=== PATIENT | female | born 1970 | race American Indian/Alaskan Native ===

== ENCOUNTER 2016-12-10 10:46 | Emergency (ER) | payer MEDICAID ==
[2016-12-10 10:47] VITALS: BMI 36.1
[2016-12-10 11:05] VITALS: RESP 18; TEMP 98.1; O2SAT 100
[2016-12-10] MEDS ORDERED: Sodium Chloride 0.9% 1,000 ML IV STA (11:34)
--- NOTE | 2016-12-10 12:06 | ED PDOC ---
Arrival/HPI - General Chief Complaint: Dizziness/Lightheaded Time Seen by Provider: 12/10/16 11:11 Historian: Patient - History of Present Illness Narrative History of Present Illness (Text): 12/10/16 12:04 46 year old female with a past medical history that includes hypertension presents to the emergency department with dizziness since yesterday. Denies headache or visual changes. Patient denies any fever/chills, cough, shortness of breath, nausea, vomiting, abdominal pain, urinary/bowel changes, back pain, or other associated symptoms. She describes the dizziness as if things are moving and making her feel unsteady with walking. No focal weakness. Time/Duration: 24 hours Symptom Onset: Sudden Symptom Course: Unchanged Modifying Factors (Text): None Associated Symptoms (Text): None Past Medical History - Provider Review Nursing Documentation Reviewed: Yes - Infectious Disease Hx of Infectious Diseases: None - Tetanus Immunization Tetanus Immunization: Unknown - Cardiac Hx Hypertension: Yes Hx Pacemaker: No - Pulmonary Hx Respiratory Disorders: Yes (smoker) - Neurological Hx Paralysis: No - Hematological/Oncological Hx Blood Transfusions: No Hx Blood Transfusion Reaction: No - Musculoskeletal/Rheumatological Hx Musculoskeletal Disorders: Yes (obesity) - Psychiatric Hx Substance Use: No - Surgical History Hx Section: Yes Hx Gastric Bypass Surgery: Yes (2012) - Anesthesia Hx Anesthesia: Yes Hx Anesthesia Reactions: No Hx Malignant Hyperthermia: No - Suicidal Assessment Feels Threatened In Home Enviroment: No Family/Social History - Physician Review Nursing Documentation Reviewed: Yes Family/Social History: Unknown Family HX Smoking Status: Heavy Smoker > 10 Cigarettes Daily Hx Alcohol Use: Yes Frequency of alcohol use: Socially Hx Substance Use: No Allergies/Home Meds Allergies/Adverse Reactions: Allergies No Known Allergies Allergy (Verified 12/10/16 11:05) Home Medications: Home Meds Medication Instructions Recorded Confirmed hydroCHLOROthiazide [Hydrodiuril] 25 mg PO DAILY 12/10/16 12/10/16 Review of Systems - Physician Review All systems were reviewed & negative as marked: Yes - Review of Systems Constitutional: absent: Fevers Eyes: absent: Vision Changes ENT: absent: Sore Throat Respiratory: absent: SOB, Cough Cardiovascular: absent: Chest Pain Gastrointestinal: absent: Abdominal Pain, Nausea, Vomiting Genitourinary Female: absent: Dysuria, Frequency, Hematuria Musculoskeletal: absent: Back Pain Skin: absent: Rash Neurological: Dizziness. absent: Headache, Focal Weakness, Speech Changes Endocrine: absent: Diaphoresis Psychiatric: absent: Depression Physical Exam Vital Signs Reviewed: Yes Vital Signs Temp Pulse Resp BP Pulse Ox 12/10/16 12:18 50 L 131/92 H 12/10/16 10:58 98.1 F 59 L 18 167/105 H 100 Temperature: Afebrile Blood Pressure: Hypertensive Pulse: Bradycardic Respiratory Rate: Normal Appearance: Positive for: Well-Appearing, Non-Toxic, Comfortable Pain Distress: None Mental Status: Positive for: Alert and Oriented X 3 - Systems Exam Head: Present: Atraumatic, Normocephalic Pupils: Present: PERRL Extroacular Muscles: Present: EOMI Conjunctiva: Present: Normal Mouth: Present: Moist Mucous Membranes Pharnyx: Present: Normal. No: ERYTHEMA, EXUDATE Neck: Present: Normal Range of Motion Respiratory/Chest: Present: Clear to Auscultation, Good Air Exchange. No: Respiratory Distress, Accessory Muscle Use Cardiovascular: Present: Regular Rate and Rhythm, Normal S1, S2. No: Murmurs Abdomen: Present: Normal Bowel Sounds. No: Tenderness, Distention, Peritoneal Signs Back: Present: Normal Inspection Upper Extremity: Present: Normal Inspection. No: Cyanosis, Edema Lower Extremity: Present: Normal Inspection. No: Edema Neurological: Present: GCS=15, CN II-XII Intact, Speech Normal, Motor Func Grossly Intact, Normal Sensory Function, Normal Cerebellar Funct, Norm Deep Tendon Reflexes, Gait Normal, Normal 2Pt Descrimination Skin: Present: Warm, Dry, Normal Color. No: Rashes Psychiatric: Present: Alert, Oriented x 3, Normal Insight, Normal Concentration Medical Decision Making ED Course and Treatment: Impression: 46 year old female with a past medical history that includes hypertension presents to the emergency department with lightheadedness since yesterday. Normal neuro exam. Differential Diagnosis included but are not limited to: Vertigo vs hypertensive urgency vs less likely cerebellar etiology Plan: -- CT Head, EKG, CXR -- Antivert, Norvasc, IV fluids -- Labs -- Reassess and disposition Progress Notes: Chest X-ray Mechanical Shop Laborer : Jalil Glez MD FINDINGS: LUNGS: Pulmonary hyperinflation with flattening of the diaphragm. This may be due to an excellent inspiratory effort or may reflect emphysema. No pulmonary infiltrate. There is a pulmonary nodule, 1.4 cm in greatest dimension, in the mid right lung in the interspace between the posterior 6th and 7th ribs. In retrospect, this may have been present on prior examination of 07/12/2015. The morphology is not precisely the same and in both cases this overlaps the inferior scapular tip. Nevertheless, evaluation with computed tomography of the chest is suggested. No other pulmonary mass is identified. IMPRESSION: 1.4 cm ovoid nodule in the mid right lung, laterally. Further evaluation with computed tomography of the chest is advised. Pulmonary hyperinflation which may reflect excellent inspiratory effort or emphysema. Please correlate. CT Head Mechanical Shop Laborer: Du Strauss MD IMPRESSION: Normal CT of the head CT Chest Mechanical Shop Laborer : Jalil Glez MD BONES: There is a small curvilinear bony protrusion arising from the anterior scapular tip bilaterally, more prominent on the right side. In retrospect, this is the apparent cause of the nodular opacity seen on plain chest radiograph of the same date. There is no pulmonary mass identified. Spondylosis with osteophytes about multiple lower thoracic intervertebral disc spaces is noted. There is no dave degenerative disc disease with disc space narrowing. UPPER ABDOMEN: Evidence prior gastric surgery, either partial gastrectomy or gastric bypass surgery. IMPRESSION: No pulmonary mass. The opacity on chest radiograph represents a curvilinear bony protrusion from the inferior scapular tip. Evidence of prior gastric surgery. No other significant abnormality. 12/10/16 15:17 Labs and urine are unremarkable with normal neuro exam and brain CT. CXR concerning for nodule but CT chest is negative for pulmonary abnormality. Patient feeling better s/p meds - will d.c on meclizine and have her f/u her PMD for BP recheck. EKG unchanged from 02/06/12 (had negative cath) with no cp. Dc. - Lab Interpretations Lab Results: 12/10/16 12:11 12/10/16 12:11 Lab Results 12/10/16 14:46: Urine Color Yellow, Urine Appearance Clear, Urine pH 6.5, Ur Specific [place] 1.020, Urine Protein Negative, Urine Glucose (UA) Negative, Urine Ketones Negative, Urine Blood Negative, Urine Nitrate Negative, Urine Bilirubin Negative, Urine Urobilinogen 1.0 H, Ur Leukocyte Esterase Negative 12/10/16 12:11: WBC 4.6, RBC 3.83, Hgb 11.1 L, Hct 33.8 L, MCV 88.3, MCH 29.0, MCHC 32.8, RDW 15.1 H, Plt Count 251, MPV 9.9, Gran % 42.7 L, Lymph % (Auto) 43.3 H, Centre % (Auto) 10.5 H, Eos % (Auto) 3.3, Baso % (Auto) 0.2, Gran # 1.95, Lymph # 2.0, Centre # 0.5, Eos # 0.2, Baso # 0.01, PT 10.7, INR 0.99, APTT 25.2, Sodium 135, Potassium 4.2, Chloride 100, Carbon Dioxide 31, Anion Gap 8 L, BUN 17, Creatinine 0.7, Est GFR ( Amer) > 60, Est GFR (Non-Af Amer) > 60, Random Glucose 84, Calcium 8.6, Magnesium 2.1, Total Bilirubin 0.6, AST 29, ALT 32, Alkaline Phosphatase 60, Lactate Dehydrogenase 461, Total Creatine Kinase 96 , Troponin I < 0.01, Total Protein 6.6, Albumin 3.4, Globulin 3.2, Albumin/ Globulin Ratio 1.1, Lipase 74 - RAD Interpretation Radiology Orders: 12/10/16 11:34 Brain [HEAD W/O CONTRAST] [CT] Stat CHEST TWO VIEWS (PA/LAT) [RAD] Stat 12/10/16 13:29 CHEST W/O & HIGH RES CHEST [CT] Stat - EKG Interpretation EKG Interpretation (Text): 12/10/16 15:28 sinus alejandro @ 47 with normal intervals; borderline left axis; no new significant ST/T changes c/w 02/06/12 (from stress test records). Interpreted by ED Physician: Yes Type: 12 lead EKG Comparison: Similar to previous EKG (02/06/12) - Medication Orders Current Medication Orders: Discontinued Medications Amlodipine Besylate (Norvasc) 2.5 mg PO ONCE STA Stop: 12/10/16 11:34 Last Admin: 12/10/16 12:18 Dose: 2.5 MG LAURIE Pulse and Blood Pressure Document 12/10/16 12:18 OCS (Rec: 12/10/16 12:19 [facility] [id number]) Pulse Pulse Rate (60-90) 50 Blood Pressure Blood Pressure (100/60-150/90) 131/92 Sodium Chloride (Sodium Chloride 0.9%) 1,000 mls @ 999 mls/hr IV .Q1H1M STA Stop: 12/10/16 12:34 Last Admin: 12/10/16 12:17 Dose: 999 MLS/HR eMAR Start Stop Document 12/10/16 12:17 OCS (Rec: 12/10/16 12:17 [facility] [id number]) Intravenous Solution Start Date 12/10/16 Start Time 12:17 Meclizine HCl (Antivert) 12.5 mg PO STAT STA Stop: 12/10/16 11:34 Last Admin: 12/10/16 12:18 Dose: 12.5 MG - Scribe Statement The provider has reviewed the documentation as recorded by the Stacy Ramirez Provider Scribe Attestation: All medical record entries made by the Allynibemy were at my direction and personally dictated by me. I have reviewed the chart and agree that the record accurately reflects my personal performance of the history, physical exam, medical decision making, and the department course for this patient. I have also personally directed, reviewed, and agree with the discharge instructions and disposition. Disposition/Present on Arrival - Present on Arrival Any Indicators Present on Arrival: No History of DVT/PE: No History of Uncontrolled Diabetes: No Urinary Catheter: No History of Decub. Ulcer: No History Surgical Site Infection Following: Bariatric Surgery, None - Disposition Have Diagnosis and Disposition been Completed?: Yes Diagnosis: Vertigo Disposition: HOME/ ROUTINE Disposition Time: 15:20 Patient Plan: Discharge Patient Problems: Current Active Problems Problem Status Diagnosed Vertigo Acute Condition: GOOD Discharge Instructions (ExitCare): Vertigo (ED) Additional Instructions: Take the meclizine as prescribed. Follow up with Dr. Medeiros in 1-2 days for Blood pressure recheck and follow up evaluation. Return to the emergency department if any new concerning symptoms. Prescriptions: Meclizine HCl 1 tab PO TID PRN #15 tablet PRN Reason: Dizziness Forms: WORK NOTE
[2016-12-10 12:19] VITALS: BP 131/92; PULSE 50
[2016-12-10 12:21] LABS: ADD MANUAL DIFF? NO
[2016-12-10 12:39] LABS: ALB/GLOB RATIO 1.1 (1.1-1.8); ALKALINE PHOSPHATASE 60 U/L (38-133); ALT/SGPT 32 U/L (7-56); AST/SGOT 29 U/L (15-39); BILIRUBIN,TOTAL 0.6 mg/dL (0.2-1.3); BLOOD UREA NITROGEN 17 mg/dL (7-21); CALCIUM 8.6 mg/dL (8.4-10.5); CARBON DIOXIDE 31 mmol/L (21-33); CHLORIDE 100 mmol/L (98-107); GFR AFRICAN-AMERICAN > 60; GLUCOSE,RANDOM 84 mg/dL (70-110); LIPASE 74 U/L (23-300); MAGNESIUM 2.1 mg/dL (1.7-2.2); POTASSIUM 4.2 mmol/L (3.6-5.0); SODIUM 135 mmol/L (132-148); TOTAL PROTEIN 6.6 g/dL (5.8-8.3)
[2016-12-10 12:40] LABS: BASO # 0.01 K/mm3 (0.0-2.0); BASO % 0.2 % (0.0-3.0); EOS # 0.2 (0.0-0.7); EOS % 3.3 % (1.5-5.0); GRAN # 1.95 (1.4-6.5); GRAN % 42.7 % (50.0-68.0); HEMATOCRIT 33.8 % (36.0-48.0); LYMPH % 43.3 % (22.0-35.0); MEAN CELL VOLUME 88.3 fL (80.0-105.0); MEAN CORPUSCULAR HGB CONC 32.8 g/dl (31.0-37.0); MEAN PLATELET VOLUME 9.9 fl (7.0-11.0); MONO # 0.5 (0.1-0.6); MONO % 10.5 % (1.0-6.0); PLATELET COUNT 251 10^3/uL (120.0-450.0); RED CELL DISTRIBUTION WIDTH 15.1 % (11.5-14.5); WHITE BLOOD COUNT 4.6 10^3/ul (4.5-11.0)
[2016-12-10 12:42] LABS: INR 0.99 (0.93-1.08); PARTIAL THROMBOPLASTIN TIME 25.2 Seconds (23.7-30.8)
--- NOTE | 2016-12-10 12:49 | CT ---
PROCEDURE: CT HEAD WITHOUT CONTRAST. HISTORY: dizzy COMPARISON: None available. TECHNIQUE: Axial computed tomography images were obtained through the head/brain without intravenous contrast. Radiation dose: Total exam DLP = 629 mGy-cm. This CT exam was performed using one or more of the following dose reduction techniques: Automated exposure control, adjustment of the mA and/or kV according to patient size, and/or use of iterative reconstruction technique. FINDINGS: HEMORRHAGE: No intracranial hemorrhage. BRAIN: No mass effect or edema. No atrophy or chronic microvascular ischemic changes. VENTRICLES: Unremarkable. No hydrocephalus. CALVARIUM: Unremarkable. PARANASAL SINUSES: Unremarkable as visualized. No significant inflammatory changes. MASTOID AIR CELLS: Unremarkable as visualized. No inflammatory changes. OTHER FINDINGS: None. IMPRESSION: Normal CT of the Head.
[2016-12-10 12:50] LABS: TROPONIN I < 0.01 ng/mL
--- NOTE | 2016-12-10 13:19 | RAD ---
HISTORY: dizzy COMPARISON: 07/12/2015 TECHNIQUE: Chest PA and lateral FINDINGS: LUNGS: Pulmonary hyperinflation with flattening of the diaphragm. This may be due to an excellent inspiratory effort or may reflect emphysema. No pulmonary infiltrate. There is a pulmonary nodule, 1.4 cm in greatest dimension, in the mid right lung in the interspace between the posterior 6th and 7th ribs. In retrospect, this may have been present on prior examination of 07/12/2015. The morphology is not precisely the same and in both cases this overlaps the inferior scapular tip. Nevertheless, evaluation with computed tomography of the chest is suggested. No other pulmonary mass is identified. PLEURA: No significant pleural effusion identified. No pneumothorax apparent. CARDIOVASCULAR: Normal. OSSEOUS STRUCTURES: No significant abnormalities. VISUALIZED UPPER ABDOMEN: Normal. OTHER FINDINGS: None. IMPRESSION: 1.4 cm ovoid nodule in the mid right lung, laterally. Further evaluation with computed tomography of the chest is advised. Pulmonary hyperinflation which may reflect excellent inspiratory effort or emphysema. Please correlate.
[2016-12-10 14:58] LABS: PH,URINE 6.5 (4.7-8.0); URINE BILIRUBIN NEGATIVE (NEGATIVE); URINE BLOOD NEGATIVE (NEGATIVE); URINE GLUCOSE (UA) NEGATIVE (NEGATIVE); URINE KETONE NEGATIVE (NEGATIVE); URINE LEUKOCYTE ESTERASE NEGATIVE Leu/uL (NEGATIVE); URINE PROTEIN NEGATIVE mg/dL (<30 mg/dL)
[2016-12-10 14:59] LABS: URINE APPEARANCE CLEAR (CLEAR); URINE COLOR YELLOW (YELLOW)
--- NOTE | 2016-12-10 15:12 | CT ---
PROCEDURE: CT Chest without contrast HISTORY: 1.4 cm ovoid nodule, mid R lung COMPARISON: None. TECHNIQUE: Contiguous axial images were obtained through the chest without intravenous contrast enhancement. Sagittal and coronal reconstructions were performed. Radiation dose (DLP): mGy-cm. This CT exam was performed using one or more of the following dose reduction techniques: Automated exposure control, adjustment of the mA and/or kV according to patient size, and/or use of iterative reconstruction technique. FINDINGS: LUNGS: Clear lungs. Visualized airway clear. MEDIASTINUM: Unremarkable thoracic aorta. No aneurysm. Normal sized heart. Main pulmonary artery unremarkable. No vascular congestion. No lymphadenopathy. PLEURA: No pleural fluid. No pneumothorax. BONES: There is a small curvilinear bony protrusion arising from the anterior scapular tip bilaterally, more prominent on the right side. In retrospect, this is the apparent cause of the nodular opacity seen on plain chest radiograph of the same date. There is no pulmonary mass identified. Spondylosis with osteophytes about multiple lower thoracic intervertebral disc spaces is noted. There is no dave degenerative disc disease with disc space narrowing. UPPER ABDOMEN: Evidence prior gastric surgery, either partial gastrectomy or gastric bypass surgery. OTHER FINDINGS: None. IMPRESSION: No pulmonary mass. The opacity on chest radiograph represents a curvilinear bony protrusion from the inferior scapular tip. Evidence of prior gastric surgery. No other significant abnormality.
--- NOTE | 2016-12-10 18:50 | CARD ---
APPROVED REPORT EKG Measurement Heart [id number] <Conclusion> Marked sinus bradycardia Inferior infarct, age undetermined Cannot rule out Anterior infarct, age undetermined Abnormal ECG
== END 2016-12-10 15:38 | disposition home or self-care (01) ==
LOC: ED 10:46
DX: R42 Dizziness and giddiness (principal)
CPT/HCPCS: 70450; 71020; 71250; 80053; 81003; 82550; 82948; 83615; 83690; 83735; 84484; 85025; 85610; 85730; 93005; 99284; J7040